=== PATIENT | female | born 1935 | race Caucasian/White ===

== ENCOUNTER 2021-03-31 20:57 | Emergency (ER) | payer MEDICARE, BC ==
[2021-03-31 21:13] VITALS: BP 152/83; PULSE 91
--- NOTE | 2021-03-31 22:47 | EDM.PDOC ---
ED HPI GENERAL MEDICAL PROBLEM - General Chief Complaint: Genitourinary Problem Stated Complaint: HEAVY VAGINAL BLEEDING Time Seen by Provider: 03/31/21 21:22 Source of Information: Reports: Patient, RN Notes Reviewed History Limitations: Reports: No Limitations - History of Present Illness INITIAL COMMENTS - FREE TEXT/NARRATIVE: Patient is an 85-year-old female returning to the emergency department with concerns of uterine prolapse and bleeding. She was seen by me earlier this evening for similar complaints. Blood work was done at that time and her hemoglobin was found to be 14.1. She reports that when she went home, the bleeding had improved, however she stood up from the couch and felt her uterus prolapse again. She estimates that her uterus was hanging about 3 inches out of her vagina. She had some recurrence of bleeding with this as well. She was able to push her uterus back into her vagina. She then returned to the emergency department for reevaluation. She has been able to void without difficulty. The amount of bleeding she had did not saturate a pad. - Related Data Allergies Allergy/AdvReac Type Severity Reaction Status Date / Time tetanus and diphtheria Allergy Severe Swelling Verified 03/31/21 21:13 toxoids [tetanus & diphtheria toxoids] erythromycin base AdvReac Severe Vomiting Verified 03/31/21 21:13 hydrochlorothiazide AdvReac Severe Tachycardia Verified 03/31/21 21:13 [From Diovan HCT] Sulfa (Sulfonamide AdvReac Severe Tachycardia Verified 03/31/21 21:13 Antibiotics) valsartan [From Diovan HCT] AdvReac Severe Tachycardia Verified 03/31/21 21:13 Home Meds: Home Meds Allopurinol [Zyloprim] 100 mg PO DAILY 11/30/15 [History] Cholecalciferol (Vitamin D3) [Vitamin D] 2,000 mg PO DAILY 11/30/15 [History] Hydrochlorothiazide 12.5 mg PO DAILY 11/30/15 [History] Losartan Potassium 50 mg PO DAILY 11/30/15 [History] Thyroid,Pork [[place] Thyroid] 15 mg PO DAILY 11/30/15 [History] amLODIPine [Norvasc] 2.5 mg PO DAILY 11/30/15 [History] Metoprolol Tartrate 12.5 mg PO DAILY 03/31/21 [History] Past Medical History Cardiovascular History: Reports: Heart Failure, Hypertension Respiratory History: Reports: SOB [employer] History: Reports: , Prolapsed Uterus Other [employer] History: Pt states she had "dysfunctional vaginal bleeding in my younger years. I was told I need to get a hysterectomy, but I did not". Musculoskeletal History: Reports: Gout Neurological History: Reports: CVA Endocrine/Metabolic History: Reports: Hypothyroidism, Obesity/BMI 30+ - Past Surgical History HEENT Surgical History: Reports: Naso-Sinus Surgery Female Surgical History: Reports: Tubal Ligation Musculoskeletal Surgical History: Reports: Other (See Below) Other Musculoskeletal Surgeries/Procedures:: right elbow surgery Social & Family History - Family History Neurological: Reports: CVA - Tobacco Use Tobacco Use Status *Q: Former Tobacco User Used Tobacco, but Quit: Yes Month/Year Tobacco Last Used: 2009 - Caffeine Use Caffeine Use: Reports: Coffee - Recreational Drug Use Recreational Drug Use: No ED ROS GENERAL - Review of Systems Review Of Systems: Comprehensive ROS is negative, except as noted in HPI. ED EXAM, RENAL/ - Physical Exam Exam: See Below Exam Limited By: No Limitations General Appearance: Alert, WD/WN, No Apparent Distress Respiratory/Chest: No Respiratory Distress, Lungs Clear, Normal Breath Sounds, No Accessory Muscle Use, Chest Non-Tender Cardiovascular: Normal Peripheral Pulses, Regular Rate, Rhythm, No Edema, No Gallop, No JVD, No Murmur, No Rub (Female) Exam: Other (Grade 2-3 uterine prolapse. Tissue/blood clot present in cervical os. Scant bleeding.) Neurological: Alert, Oriented, CN II-XII Intact, Normal Cognition, Normal Gait, Normal Reflexes, No Motor/Sensory Deficits Psychiatric: Normal Affect, Normal Mood Skin Exam: Warm, Dry, Intact, Normal Color, No Rash Course - Vital Signs Last Recorded V/S: Last Vital Signs Temp 98.7 F 03/31/21 21:10 Pulse 91 03/31/21 21:10 Resp 18 03/31/21 21:10 BP 152/83 H 03/31/21 21:10 Pulse Ox 96 03/31/21 21:10 - Re-Assessments/Exams Free Text/Narrative Re-Assessment/Exam: Patient is an 85-year-old female presenting to the emergency department for reevaluation of uterine prolapse. I saw her earlier this evening after she experienced initial onset of this with bleeding. On evaluation at that time, she was found to have grade 2-3 uterine prolapse with tissue/blood clot in the cervical os. Her case was discussed with [employer], Dr. Dick. He recommend follow-up in the clinic early next week. She was advised to return should she saturate a pad an hour for 2 or more hours or with concerning symptoms. She reports that this evening, she stood up from the couch and felt her uterus prolapse. She states that it was "hanging out ". She was able to push it back in and had some bleeding associated with this. She states she did not saturate a pad. On exam, she had some small areas of spotting in the pad that she warranted to the ER. Exam at this time is consistent with previous exam of a grade 2-3 uterine prolapse. There is only a small amount of bleeding. Case was discussed with [employer] on-call, Dr. Baldwin. She recommends that if this should occur, she continue to push the prolapse back in. She states this is normally when I have some bleeding is when the uterus prolapses. If she is having urinary retention, that would warrant immediate action. Also she is having substantial amount of bleeding. Discussed this with the patient. Reiterated that if she is saturating saturating pads or if she is unable to void, that she should return to the emergency department. She verbalized understanding of this. Recommend that she go home and rest and avoid strenuous activity or straining to have bowel movements. Discharge instructions as documented. Departure - Departure Time of Disposition: 22:47 Disposition: Home, Self-Care 01 Condition: Good Clinical Impression: Uterine prolapse, Vaginal bleeding - Discharge Information *PRESCRIPTION DRUG MONITORING PROGRAM REVIEWED*: No *COPY OF PRESCRIPTION DRUG MONITORING REPORT IN PATIENT ANJELICA: No Instructions: Abnormal Uterine Bleeding, Pelvic Organ Prolapse Referrals: Aramis Ventura MD [Primary Care Provider] - Clay Dick MD [Physician] - Forms: ED Department Discharge Additional Instructions: You were seen in the emergency department today for reevaluation of uterine prolapse with bleeding. Your case was discussed with the [employer] on-call, Dr. Baldwin. She recommended that should you experience recurrence of uterine prolapse, that you gently push it back into the vagina. Follow-up with Dr. Dick on Saturday for evaluation and treatment. If you are experiencing significant bleeding causing you to saturate pads or you are unable to void or experience any other concerning symptoms, please do not hesitate to return to the emergency department for reevaluation. Sepsis Event Note (ED) - Evaluation Sepsis Screening Result: No Definite Risk
== END 2021-03-31 23:00 | disposition home or self-care (01) ==
LOC: JD.ED 20:57
DX: N81.4 Uterovaginal prolapse, unspecified (principal); N93.9 Abnormal uterine and vaginal bleeding, unspecified; I11.0 Hypertensive heart disease with heart failure; I50.9 Heart failure, unspecified; M10.9 Gout, unspecified; E03.9 Hypothyroidism, unspecified; E66.9 Obesity, unspecified; Z68.32 Body mass index [BMI] 32.0-32.9, adult; Z87.891 Personal history of nicotine dependence; Z88.2 Allergy status to sulfonamides; Z88.8 Allergy status to other drugs, medicaments and biological substances; Z88.7 Allergy status to serum and vaccine; Z88.1 Allergy status to other antibiotic agents; Z79.899 Other long term (current) drug therapy; N81.9 Female genital prolapse, unspecified; Z86.73 Personal history of transient ischemic attack (TIA), and cerebral infarction without residual deficits; Z68.31 Body mass index [BMI] 31.0-31.9, adult
CPT/HCPCS: 36415; 80053; 85025; 86850; 86900; 86901; 99283; 99284

== ENCOUNTER 2023-02-14 09:31 | Emergency (ER) | payer MEDICARE, BC ==
[2023-02-14 10:54] LABS: BASOPHILS ABSOLUTE AUTO 0.05 K/mm3 (0.01-0.08); BASOPHILS PERCENT AUTO 0.4 % (0.1-1.2); EOSINOPHILS ABSOLUTE AUTO 0.12 K/mm3 (0.04-0.36); EOSINOPHILS PERCENT AUTO 0.9 (0.7-5.8); HEMATOCRIT 30.9 % (34.1-44.9); HEMOGLOBIN 9.8 gm/dl (11.2-15.7); IMMATURE GRAN ABSOLUTE AUTO 0.09 K/mm3 (0.00-0.10); IMMATURE GRAN PERCENT AUTO 0.7 % (<=1.0); LYMPHOCYTES ABSOLUTE AUTO 1.43 K/mm3 (1.18-3.74); LYMPHOCYTES PERCENT AUTO 10.7 % (19.3-51.7); MEAN CORPUSCULAR HEMOGLOBIN 24.1 pg (25.6-32.2); MEAN CORPUSCULAR HGB CONC 31.7 g/dl (32.2-35.5); MEAN CORPUSCULAR VOLUME 75.9 fl (79.4-94.8); MEAN PLATELET VOLUME 8.2 fl (9.4-12.3); MONOCYTES ABSOLUTE AUTO 0.87 K/mm3 (0.24-0.36); MONOCYTES PERCENT AUTO 6.5 % (4.7-12.5); NEUTROPHILS PERCENT AUTO 80.8 % (34.0-71.1); PLATELET COUNT,PLT 550 K/mm3 (182-369); RED BLOOD CELL COUNT 4.07 M/mm3 (3.98-5.22); WHITE BLOOD CELL COUNT,WBC 13.36 K/mm3 (3.98-10.04)
[2023-02-14 11:04] LABS: A/G RATIO 0.5 (1-2); ALBUMIN 2.3 g/dl (3.4-5.0); ANION GAP 15.5 (5-15); BILIRUBIN TOTAL 0.5 mg/dL (0.2-1.0); BUN/CREATININE RATIO 14.4 (14-18); CALCIUM 9.3 mg/dL (8.5-10.1); CREATININE 1.6 mg/dL (0.55-1.02); EST CRCL DRUG DOSING (CG) 20.33 mL/min; POTASSIUM,K 4.5 mEq/L (3.5-5.1); PROTEIN TOTAL,TP 6.9 g/dl (6.4-8.2)
[2023-02-14] MEDS ORDERED: Acetaminophen/HYDROcodone 325-5 MG Tab PO ONE (15:15)
[2023-02-14 18:21] VITALS: BP 113/74; PULSE 86
== END 2023-02-14 16:35 | disposition home or self-care (01) ==
LOC: JD.ED 09:31
DX: C18.7 Malignant neoplasm of sigmoid colon (principal); R19.7 Diarrhea, unspecified; I12.9 Hypertensive chronic kidney disease with stage 1 through stage 4 chronic kidney disease, or unspecified chronic kidney disease; N18.9 Chronic kidney disease, unspecified; J44.9 Chronic obstructive pulmonary disease, unspecified; E03.9 Hypothyroidism, unspecified; Z79.899 Other long term (current) drug therapy; E66.9 Obesity, unspecified; Z68.26 Body mass index [BMI] 26.0-26.9, adult; Z88.8 Allergy status to other drugs, medicaments and biological substances; Z88.1 Allergy status to other antibiotic agents; Z88.2 Allergy status to sulfonamides; Z88.7 Allergy status to serum and vaccine; Z91.048 Other nonmedicinal substance allergy status
CPT/HCPCS: 36415; 80053; 85025; 86850; 86900; 86901; 99284; A9270